=== PATIENT | female | born 1990 | race African-American/Black ===

== ENCOUNTER 2017-03-02 12:19 | Emergency (ER) | payer BC, MEDICAID ==
[~2017-03-02] VITALS: Ht 170.2 cm; Wt 65.0 kg
[~2017-03-02 12:19] MED LIST: CALC1TAB17 PO; PREN-142 PO
[2017-03-02] MEDS ORDERED: SODIUM CHLORIDE 0.9% 10ML VIAL ONE (12:56)
[2017-03-02] MEDS ORDERED: IOHEXOL-350 100 ML BOTTLE ONE (12:56)
[2017-03-02] MEDS ORDERED: IBUPROFEN 600MG TABLET PO STA (14:18)
[2017-03-02 14:41] LABS: EOSINOPHILS % 3.7 % (0.0-5.0); HEMATOCRIT. 40.7 % (36.0-48.0); HEMOGLOBIN. 13.6 g/dL (12.0-16.0); LYMPHOCYTES % 48.6 % (20.0-50.0); MEAN CORPUSCULAR HEMOGLOBIN 27.5 pg (28.0-32.0); MEAN CORPUSCULAR VOLUME 82.2 fL (81.0-99.0); MEAN PLATELET VOLUME 7.2 fl (7.4-10.4); MONOCYTES % 14.9 % (2.0-8.0); NEUTROPHILS % 31.8 % (40.0-76.0); PLATELET 256 x1000/uL (130-400); RED BLOOD CELL COUNT 4.95 mill/uL (4.2-5.4)
[2017-03-02 14:48] LABS: D-DIMER 0.24 mg/L FEU (<0.50); INR 1.1
[2017-03-02 14:51] LABS: CARBON DIOXIDE 26 mEq/L (21-32); CHLORIDE 107 mEq/L (98-107)
[2017-03-02 14:54] LABS: HCG SCREEN NEGATIVE
[2017-03-02 14:55] LABS: TROPONIN I < 0.02 ng/mL (0.00-0.04)
[2017-03-02 17:40] VITALS: BP 127/80
== END 2017-03-02 19:02 | disposition home or self-care (01) ==
LOC: ER 13:35
DX: R07.9 Chest pain, unspecified (principal)
CPT/HCPCS: 36415; 71010; 71275; 80053; 83880; 84484; 84703; 85025; 85379; 85610; 93005; 99285; A4216; Q9967; Z7610

== ENCOUNTER 2017-05-01 11:09 | Emergency (ER) | payer BC ==
[~2017-05-01] VITALS: Ht 165.1 cm; Wt 57.0 kg
[2017-05-01 11:35] VITALS: BP 111/72
== END 2017-05-01 16:08 | disposition left against medical advice (07) ==
LOC: ER 11:09
DX: Z53.21 Procedure and treatment not carried out due to patient leaving prior to being seen by health care provider (principal)

== ENCOUNTER 2017-05-03 19:40 | Emergency (ER) | payer BC ==
[~2017-05-03] VITALS: Ht 165.1 cm; Wt 57.0 kg
[2017-05-03] MEDS ORDERED: KETOROLAC 30MG/ML VIAL IM ONE (23:45)
[2017-05-03] MEDS ORDERED: ONDANSETRON 4MG ODT PO ONE (23:45)
[2017-05-04] MEDS ORDERED: IBUPROFEN 600MG TABLET PO ONE
[2017-05-04 02:37] VITALS: BP 112/64
== END 2017-05-04 02:25 | disposition home or self-care (01) ==
LOC: ER 21:46
DX: S06.0X0A Concussion without loss of consciousness, initial encounter (principal); X58.XXXA Exposure to other specified factors, initial encounter; Y93.89 Activity, other specified; Y92.89 Other specified places as the place of occurrence of the external cause; Y99.8 Other external cause status
CPT/HCPCS: 70450; 99284; Q0162

== ENCOUNTER 2018-05-11 10:33 | Emergency (ER) | payer BC, MEDICAID ==
[~2018-05-11] VITALS: Ht 165.1 cm; Wt 64.0 kg
[2018-05-11 10:38] VITALS: BP 113/63
== END 2018-05-11 13:10 | disposition home or self-care (01) ==
LOC: ER 10:33
DX: S90.562A Insect bite (nonvenomous), left ankle, initial encounter (principal); S90.561A Insect bite (nonvenomous), right ankle, initial encounter; F12.10 Cannabis abuse, uncomplicated; W57.XXXA Bitten or stung by nonvenomous insect and other nonvenomous arthropods, initial encounter; Y93.89 Activity, other specified; Y92.89 Other specified places as the place of occurrence of the external cause; Y99.8 Other external cause status
CPT/HCPCS: 99283